=== PATIENT | female | born 2005 | race Caucasian/White ===

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

== ENCOUNTER → 2024-05-19 | Outpatient (CLI) | payer OTHER | END | disposition home or self-care (01) | LOC: RAD 10:03 | PROVIDERS: ATTEND General Practice | DX: G89.29 Other chronic pain (principal); M25.551 Pain in right hip; M25.552 Pain in left hip; E66.9 Obesity, unspecified ==

== ENCOUNTER 2024-09-30 10:33 | Outpatient (CLI) | payer OTHER | END 2024-09-30 10:49 | disposition home or self-care (01) | LOC: SONOGRAMA 10:33 | PROVIDERS: ATTEND General Practice | DX: R10.9 Unspecified abdominal pain (principal); R11.0 Nausea; R11.10 Vomiting, unspecified ==